=== PATIENT | male | born 1995 | race Caucasian/White ===

== ENCOUNTER 2021-08-12 16:56 | Emergency (ER) | payer SELFPAY ==
[2021-08-12 17:10] VITALS: BP 151/85; PULSE 93; RESP 16; TEMP 37.1; O2SAT 98
--- NOTE | 2021-08-12 17:43 | ED.URI ---
HPI - URI/Sore Throat General Chief Complaint: Upper Respiratory Infection Stated Complaint: Sore throat Time Seen by Provider: 08/12/21 17:20 Source: patient, RN notes reviewed and old records reviewed Mode of arrival: ambulatory Limitations: no limitations History of Present Illness HPI Narrative: 26-year-old male presents to [facility] with complaints of sore throat for the past 2 days with decreased appetite and painful swallowing. 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 Patient reports that he had some chills last night but has not had any known fevers.Patient reports history of past strep pharyngitis with similar symptoms.Patient denies any acute cough or any shortness of breath noted.. MD elicited complaint: sore throat and other (painful swallowing and decreased appetite) Pertinent past history: asthma and other (strep throat ) Onset (ago): day(s) (2) Severity: moderate Pain scale (0-10): 7 Description of mucous: clear Able to tolerate fluids by mouth: Yes Exacerbating factors: swallowing Related Data Home Medications Medication Instructions Recorded Confirmed albuterol sulfate 90 mcg INHALATION DIRECTED 08/12/21 08/12/21 Allergies Allergy/AdvReac Type Severity Reaction Status Date / Time No Known Allergies Allergy Unverified 01/08/19 12:22 Review of Systems Review of Systems: CONSTITUTIONAL: Denies fever, positive chills, or sweats. EYES: Denies visual changes, redness, or discharge. ENT: Denies rhinorrhea, congestion, positive sore throat, no otalgia. positive for left swollen neck glands CARDIOVASCULAR: Denies chest pain, palpitations, or edema. RESPIRATORY: Denies cough or dyspnea. GASTROINTESTINAL: Denies abdominal pain, nausea, vomiting, or diarrhea. GENITOURINARY: Denies dysuria or hematuria. SKIN: Denies rash or itching. MUSCULOSKELETAL: Denies back pain, joint pain, or myalgia. NEUROLOGIC: Denies headache, numbness, or weakness. PSYCHIATRIC: Denies anxiety or depression. All systems reviewed & are unremarkable except as noted in HPI and below PMFSH Past Medical History Medical History (Updated 08/12/21 @ 18:15 by Gia Pan NP) Asthma Strep pharyngitis Surgical History Surgical History (Updated 08/12/21 @ 17:57 by Gia Pan NP) No history of previous surgery Social History Social History (Updated 08/12/21 @ 17:57 by Gia Pan NP) Smoking status: Never smoker Alcohol intake: current Alcohol use details: Rare Occupation/Education: student Gender identity (if verbalized by the patient): Male Comments At time of signature, agree with nursing past medical, surgical, social and family history. There is no relevant family history pertinent to the presenting complaint Exam Narrative: GENERAL: Well-appearing, well-nourished, and in no acute distress. HEAD: Normocephalic, atraumatic. EYES: PERRLA and EOMI. ENT: Nares clear, no rhinorrhea or epistaxis. Mucous membranes moist. TM's normal with good light reflex, throat red with swollen tonsils, no lesions or exudates noted. NECK: Supple.positive for lymphadenopathy left side of neck which is painful CHEST: Clear to auscultation. No respiratory distress.SAO2 98% on room air HEART: Regular rate and rhythm. No murmur heard. Normal peripheral pulses. ABDOMEN: Soft, nontender, nondistended, normal active bowel sounds. EXTREMITIES: Normal range of motion. No edema. SKIN: Warm, dry, no rash. NEURO: No focal deficits. Alert and oriented x3. Course Course Level of Care: Express Care Visit Vital Signs Vital signs: Vital Signs Temperature 37.1 C 08/12/21 17:10 Pulse Rate 93 08/12/21 17:10 Respiratory Rate 16 08/12/21 17:10 Blood Pressure 151/85 H 08/12/21 17:10 Pulse Oximetry 98 08/12/21 17:10 Temperature 37.1 C 08/12/21 17:10 Pulse Rate 93 08/12/21 17:10 Respiratory Rate 16 08/12/21
--- NOTE | 2021-08-12 19:27 | ED.URI ---
HPI - URI/Sore Throat General Chief Complaint: Upper Respiratory Infection Stated Complaint: Sore throat Time Seen by Provider: 08/12/21 17:20 Source: patient, RN notes reviewed and old records reviewed Mode of arrival: ambulatory Limitations: no limitations History of Present Illness HPI Narrative: 26 year old male presents to express care with complaints of sore throat with painful swallowing and decreased appetite since Sunday. Patient stats that he has not had any fevers that he knows of butt was chilled last night. Patient reports painful lymph nodes to the left side of his neck, is painful to turn neck to the left and is painful on palpation. Patient reports history of asthma, seasonal allergies and past strep throat. Patient has been using Chloroseptic spray to his throat. 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 MD elicited complaint: sore throat Pertinent past history: asthma, seasonal allergies and other (past strep) Onset (ago): day(s) (2) Description of mucous: clear Able to tolerate fluids by mouth: Yes Exacerbating factors: swallowing Treatments prior to arrival: other (Chloroseptic) Related Data Home Medications Medication Instructions Recorded Confirmed albuterol sulfate 90 mcg INHALATION DIRECTED 08/12/21 08/12/21 Allergies Allergy/AdvReac Type Severity Reaction Status Date / Time No Known Allergies Allergy Unverified 01/08/19 12:22 [facility] Past Medical History Medical History (Updated 08/12/21 @ 18:15 by Gia Pan NP) Asthma Strep pharyngitis Surgical History Surgical History (Updated 08/12/21 @ 17:57 by Gia Pan NP) No history of previous surgery Social History Social History (Updated 08/12/21 @ 17:57 by Gia Pan NP) Smoking status: Never smoker Alcohol intake: current Alcohol use details: Rare Occupation/Education: student Gender identity (if verbalized by the patient): Male Course Course Level of Care: Express Care Visit Vital Signs Vital signs: Vital Signs Temperature 37.1 C 08/12/21 17:10 Pulse Rate 93 08/12/21 17:10 Respiratory Rate 16 08/12/21 17:10 Blood Pressure 151/85 H 08/12/21 17:10 Pulse Oximetry 98 08/12/21 17:10 Temperature 37.1 C 08/12/21 17:10 Pulse Rate 93 08/12/21 17:10 Respiratory Rate 16 08/12/21 17:10 Blood Pressure 151/85 H 08/12/21 17:10 Pulse Oximetry 98 08/12/21 17:10 MDM - URI/Sore Throat Differential Diagnosis Differential diagnosis: Likely upper respiratory infection, sinusitis, viral infection, pharyngitis and other (tonsillitis) Lab Data Attestation: I reviewed the patient's lab results. Lab results narrative: strep screen negative, mono screen negative Labs: Strep Screen Presumptive Negative *(Reference Range: Negative)* [place] Screen Negative (Reference Range: Negative) Critical Care Time Critical Care Time Critical Care Time: No Discharge Plan Discharge Clinical Impression: Tonsillitis Patient Disposition: Home, Self-Care Condition: Stable Instructions: Antibiotic Form, Tonsillitis (ED) Additional Instructions: Your strep test today was negative. A throat culture will be sent to the laboratory for further testing. . Take the entire course of antibiotics. Throw away your current toothbrush and begin using a new toothbrush in 48 hours in order to prevent re-infection. Sanitize all reusable water bottles Claritin or Zyrtec daily may include Sudafed as decongestant as needed . Do not share items with others. Salt water gargles may alleviate some of the throat discomfort. You can take Tylenol or ibuprofen per the package instructions for pain/fever. If your symptoms persist, change or worsen significantly before you can contact yo
--- NOTE | 2021-08-16 17:18 | ED.URI ---
HPI - URI/Sore Throat General Chief Complaint: Upper Respiratory Infection Stated Complaint: Sore throat Time Seen by Provider: 08/12/21 17:20 Source: patient, RN notes reviewed and old records reviewed Mode of arrival: ambulatory Limitations: no limitations History of Present Illness HPI Narrative: Patient is a 26-year-old male who presents the urgent care with complaints of ongoing sore throat, left ear pain and possible fungal infection to the tongue. Patient states that he has been taking the amoxicillin as prescribed. Patient was seen at our facility on the , just 4 days ago for the same symptoms. Patient strep swab was negative. Patient denies of any fevers, chills, nausea or vomiting. Patient has been taking ibuprofen for the ear pain. No other acute complaints. No acute distress noted. Patient aware of the plan of care. Some parts of this dictation were generated by voice recognition software and may contain typographical and/or grammatical inaccuracies. Severity: moderate Exacerbating factors: swallowing Related Data Home Medications Medication Instructions Recorded Confirmed albuterol sulfate 90 mcg INHALATION DIRECTED 08/12/21 08/12/21 Allergies Allergy/AdvReac Type Severity Reaction Status Date / Time No Known Allergies Allergy Unverified 01/08/19 12:22 Review of Systems Review of Systems: CONSTITUTIONAL: Denies fever, chills, or sweats. EYES: Denies visual changes, redness, or discharge. ENT: Reports of sore throat, possible fungal infection to the tongue, and left otalgia CARDIOVASCULAR: Denies chest pain, palpitations, or edema. RESPIRATORY: Denies cough or dyspnea. GASTROINTESTINAL: Denies abdominal pain, nausea, vomiting, or diarrhea. GENITOURINARY: Denies dysuria or hematuria. SKIN: Denies rash or itching. MUSCULOSKELETAL: Denies back pain, joint pain, or myalgia. NEUROLOGIC: Denies headache, numbness, or weakness. All other systems reviewed are negative, except as documented in HPI. [facility] Past Medical History Medical History (Updated 08/13/21 @ 00:01 by Aly Barton) Asthma Strep pharyngitis Surgical History Surgical History (Updated 08/12/21 @ 17:57 by Gia Pan NP) No history of previous surgery Social History Social History (Updated 08/12/21 @ 17:57 by Gia L. Viviane, [employer]) Smoking status: Never smoker Alcohol intake: current Alcohol use details: Rare Gender identity (if verbalized by the patient): Male Comments At the time of my signature, I reviewed and agree with the nursing past medical, surgical, social, and family history. There is no relevant family history pertinent to the patient complaint. Exam Narrative: GENERAL: This is a well-nourished, well-developed patient, in no apparent distress. HEAD: normocephalic, atraumatic. EYES: PERRL. Sclera clear/white. Vision is grossly intact. EARS: External ears normal, auditory canals clear and without drainage, TMs normal without perforation. Hearing grossly intact. NOSE: External nose normal with no obvious nasal discharge, nares without redness, no rhinorrhea. THROAT: Mucous membranes moist, posterior pharynx clear. Mild postnasal drainage. Thin white film covering the surface of the tongue. NECK: Neck supple CARDIOVASCULAR: Regular rate and rhythm without murmurs, gallops, or rubs. RESPIRATORY: Clear to auscultation. Breath sounds equal bilaterally. No wheezes, rales, or rhonchi. SKIN: warm, intact with no suspicious lesions or rash, good texture and turgor. NEURO: awake, alert, and oriented to person, place and time. There were no obvious focal neurologic abnormalities. EXTREMITIES: No clubbing, cyanosis, or edema. Course Course Level of Care: Express Care Visit Vital Signs Vital signs: Vital Signs Temperature 98.8 F 08/12/21 17:10 Pulse Rate 93 08/12/21 17:10 Respiratory Rate 16 08/12/21 17:10 Blood Pressure 151/85 H 08/12/21 17:10 Pulse Oximetry 98 08/12/21 17:1
== END 2021-08-12 18:25 | disposition home or self-care (01) ==
PROVIDERS: Emergency Provider Registered Nurse; PCP Internal Medicine Cardiovascular Disease
DX: J03.90 Acute tonsillitis, unspecified (principal); J45.909 Unspecified asthma, uncomplicated
CPT/HCPCS: 36416; 86308; 87081; 87880; 99213; G0463

== ENCOUNTER 2021-08-16 17:05 | Emergency (ER) | payer SELFPAY ==
[2021-08-16 17:10] VITALS: BP 151/95; PULSE 84; RESP 16; TEMP 36.6; O2SAT 99
[2021-08-16 17:13] VITALS: BP 151/95; PULSE 84; RESP 16; TEMP 36.6; O2SAT 99
--- NOTE | 2021-08-16 17:21 | ED.URI ---
HPI - URI/Sore Throat General Chief Complaint: Upper Respiratory Infection Stated Complaint: Ear and neck pain Time Seen by Provider: 08/16/21 17:10 Source: patient, RN notes reviewed and old records reviewed History of Present Illness HPI Narrative: Patient is a 26-year-old male who presents the urgent care with complaints of continual sore throat and left otalgia. Patient states that he has been taking the amoxicillin as prescribed from his visit on the . Patient is concerned about a possible fungal infection on the tongue. Patient has been using ibuprofen for the ear pain. Denies of any fever, chills, nausea or vomiting. No other acute complaints. No acute distress noted. Patient aware of the plan of care. Some parts of this dictation were generated by voice recognition software and may contain typographical and/or grammatical inaccuracies. Related Data Home Medications Medication Instructions Recorded Confirmed albuterol sulfate 90 mcg INHALATION DIRECTED 08/12/21 08/12/21 Allergies Allergy/AdvReac Type Severity Reaction Status Date / Time No Known Allergies Allergy Unverified 01/08/19 12:22 Review of Systems Review of Systems: CONSTITUTIONAL: Denies fever, chills, or sweats. EYES: Denies visual changes, redness, or discharge. ENT: Reports of continual sore throat and left otalgia with possible oral fungal infection CARDIOVASCULAR: Denies chest pain, palpitations, or edema. RESPIRATORY: Denies cough or dyspnea. GASTROINTESTINAL: Denies abdominal pain, nausea, vomiting, or diarrhea. GENITOURINARY: Denies dysuria or hematuria. SKIN: Denies rash or itching. MUSCULOSKELETAL: Denies back pain, joint pain, or myalgia. NEUROLOGIC: Denies headache, numbness, or weakness. All other systems reviewed are negative, except as documented in HPI. [facility] Past Medical History Medical History (Updated 08/16/21 @ 17:23 by MEMO Gallegos) Asthma Strep pharyngitis Surgical History Surgical History (Updated 08/12/21 @ 17:57 by Gia Pan NP) No history of previous surgery Social History Social History (Updated 08/12/21 @ 17:57 by Gia Pan NP) Smoking status: Never smoker Alcohol intake: current Alcohol use details: Rare Gender identity (if verbalized by the patient): Male Comments At the time of my signature, I reviewed and agree with the nursing past medical, surgical, social, and family history. There is no relevant family history pertinent to the patient complaint. Exam Narrative: GENERAL: This is a well-nourished, well-developed patient, in no apparent distress. HEAD: normocephalic, atraumatic. EYES: PERRL. Sclera clear/white. Vision is grossly intact. EARS: External ears normal, auditory canals clear and without drainage, TMs normal without perforation. Hearing grossly intact. NOSE: External nose normal with no obvious nasal discharge, nares without redness, no rhinorrhea. THROAT: Mucous membranes moist, posterior pharynx clear. Thin white film on the surface of the tongue NECK: Neck supple, non-tender without lymphadenopathy, masses or thyromegaly. CARDIOVASCULAR: Regular rate and rhythm without murmurs, gallops, or rubs. RESPIRATORY: Clear to auscultation. Breath sounds equal bilaterally. No wheezes, rales, or rhonchi. SKIN: warm, intact with no suspicious lesions or rash, good texture and turgor. NEURO: awake, alert, and oriented to person, place and time. There were no obvious focal neurologic abnormalities. EXTREMITIES: No clubbing, cyanosis, or edema. Course Course Level of Care: Express Care Visit Vital Signs Vital signs: Vital Signs Temperature 97.8 F 08/16/21 17:10 Pulse Rate 84 08/16/21 17:10 Respiratory Rate 16 08/16/21 17:10 Blood Pressure 151/95 H 08/16/21 17:10 Pulse Oximetry 99 08/16/21 17:10 Temperature 97.8 F 08/16/21 17:13 Pulse Rate 84 08/16/21 17:13 Respiratory Rate 16 08/16/21 17:13 Blood Pressure 151/95 H
== END 2021-08-16 17:30 | disposition home or self-care (01) ==
PROVIDERS: Emergency Provider Nurse Practitioner Family; PCP Internal Medicine Cardiovascular Disease
DX: B37.0 Candidal stomatitis (principal); J45.909 Unspecified asthma, uncomplicated
CPT/HCPCS: 99213; G0463